=== PATIENT | male | born 1945 | race Caucasian/White ===

== ENCOUNTER 2017-03-16 10:30 | Emergency (ER) | payer OTHER, MEDICARE ==
[2017-03-16] MEDS ORDERED: Ondansetron INJ* 2 MG/ML VIAL IV ONE (10:49)
[2017-03-16] MEDS ORDERED: Morphine INJ* 4 MG/ML 1 ML CARPUJECT IV ONE ×2 (10:49→11:43)
--- NOTE | 2017-03-16 10:57 | ED ---
Abdominal Pain/Male - HPI Summary HPI Summary: Pt here w/ abrupt Lt flank and LLQ pain this morning while going to the bathroom. [place] "funny" this morning when he woke up - was able to urinate and move bowels "a little" but developed burning pain in LLQ during this bathroom visit. Denies nausea, vomiting, diarrhea. He is quite upset about his pain and so details of HPI were limited. is present and reports he has h/o diverticulitis as well as kidney stones - pt is unable to report if this pain feels like either or both. Has not taken HTN meds in past 1 month. Reports he takes 800mg ibuprofen nightly for B/L shoulder pain but stopped taking this past week as it wasn't helping anymore. reports he's complained of intermittent Lt arm pain and finger tingling w/ chest pain on/off over the past few months. Pt reports this is positional and denies nausea, vomiting, jaw pain, diaphoresis, SOB. No h/o [place] or cardiac pathology. - History of Current Complaint Chief Complaint: EDFlankPain Stated Complaint: LEFT FLANK PAIN, Time Seen by Provider: 03/16/17 10:43 Hx Obtained From: Patient, Family/Topographical Drafter - Pain Intensity: 10 - Allergies/Home Medications Allergies/Adverse Reactions: Allergies Allergy/AdvReac Type Severity Reaction Status Date / Time No Known Allergies Allergy Verified 03/16/17 10:51 PMH/Surg Hx/FS Hx/Imm Hx Previously Healthy: Yes Endocrine/Hematology History: Denies: Hx Anticoagulant Therapy, Hx Blood Disorders Cardiovascular History: Reports: Hx Hypertension - has not taken meds in past 1 month - reports intermittent Lt arm, chest edgar Denies: Hx Aneurysm, Hx Coronary Artery Disease, Hx Myocardial Infarction Respiratory History: Denies: Hx Asthma, Hx Chronic Obstructive Pulmonary Disease (COPD) GI History: Reports: Hx Diverticulosis - h/o diverticulitis w/ surgical repair 10 yrs ago, Other GI Disorders - hernia repair -result of divertic surgical repair History: Reports: Hx Kidney Stones Musculoskeletal History: Reports: Hx Arthritis - dx'd by pt - B/L shoulders Denies: Hx Back Problems Infectious Disease History: No Infectious Disease History: Denies: Traveled Outside the [place] in Last 30 Days - Social History Lives: With Family Alcohol Use: Rare Hx Substance Use: No Substance Use Type: Reports: None Hx Tobacco Use: Yes - not currently Smoking Status (MU): Former Smoker Review of Systems Constitutional: Negative Negative: Fever, Chills, Fatigue Eyes: Negative Negative: Photophobia, Blurred Vision, Diplopia, Drainage, Erythema ENT: Negative Cardiovascular: Negative Negative: Palpitations, Chest Pain Respiratory: Negative Negative: Shortness Of Breath, Cough Positive: Abdominal Pain. Negative: Vomiting, Diarrhea, Nausea Positive: see HPI, dysuria, frequency, flank pain - Lt Skin: Negative Neurological: Negative Positive: Anxious All Other Systems Reviewed And Are Negative: Yes Physical Exam Triage Information Reviewed: Yes Vital Signs On Initial Exam: Initial Vitals Temp Pulse Resp BP Pulse Ox 97.9 F 67 20 182/76 100 03/16/17 10:37 03/16/17 10:37 03/16/17 10:37 03/16/17 10:37 03/16/17 10:37 Vital Signs Reviewed: Yes Appearance: Positive: Well-Nourished, Ill-Appearing - generalized pallor, Pain Distress - moderate to severe - writhing in pain - limited response to questions as he's in so much pain - just repeats, "I need something for pain" Skin: Positive: Warm, Skin Color Reflects Adequate Perfusion, Dry Head/Face: Positive: Normal Head/Face Inspection Eyes: Positive: Normal, EOMI, Conjunctiva Clear - anicteric sclera ENT: Positive: Normal ENT inspection, Hearing grossly normal, Pharynx normal - mucosa moist Respiratory/Lung Sounds: Positive: Clear to Auscultation, Breath Sounds Present. Negative: Rales, Rhonchi, Wheezes Cardiovascular: Positive: Normal, RRR, Pulses are Symmetrical in both Upper and Lower Extremities - DP's + 2 equal B/L, S1, S2. Negative: Murmur, Rub, Leg Edema Left, Leg Edema Right, Other - no bruit appreciated Abdomen Description: Positive: No Organomegaly, Soft, CVA Tenderness (L), Guarding - LLQ, Other: - LLQ TTP - pt grabs my hand to pull it away. Negative: CVA Tenderness (R), Distended, Pulsatile Mass Bowel Sounds: Positive: Present Musculoskeletal: Positive: Normal, Strength/ROM Intact - pt has some trouble sitting up in bed but reports it's d/t ab pain, not back pain or weakness Neurological: Positive: Normal, Sensory/Motor Intact, Alert, Oriented to Person Place, Time, CN Intact II-III Psychiatric: Positive: Anxious Diagnostics - Vital Signs Vital Signs Temp Pulse Resp BP Pulse Ox 03/16/17 10:46 67 182/76 100 03/16/17 10:43 67 100 03/16/17 10:37 97.9 F 67 20 182/76 100 - Laboratory Result Diagrams: 03/16/17 10:50 03/16/17 10:50 Lab Statement: Any lab studies that have been ordered have been reviewed, and results considered in the medical decision making process. Re-Evaluation - Re-Evaluation First Eval Change: Improved - pain was 12/04 - now 09/03 - would like more pain med Second Eval Change: Improved - pain improved s/p additional morphine 4mg Abdominal Pain Fem Course/Dx - Course Course Of Treatment: CT report reviewed - B/L nephrolithiasis and Lt sided UVJ stone. Multiple ventral hernias w/o obstruction, one in particular on Lt side. This was also palpated on exam and tender for pt. No rebounding. Spoke w/ Mecenas - explained CT findings and PE findings - okay to d/c and f/u oupt in office as needed for hernia sx. Will have pt f/u w/ urology -strain urine until passes completely. Return to ED for danger s/sx - Diagnoses Provider Diagnoses: Lower urinary tract calculus, Bilateral nephrolithiasis, Ventral hernia without obstruction or gangrene Discharge - Discharge Plan Condition: Stable Disposition: HOME Prescriptions: HYDROcodone/ACETAMIN 5-325 MG* [[place] 5-325 TAB*] 1 tab PO Q6H PRN #20 tab MDD 4 PRN Reason: Pain Ibuprofen TAB* [Motrin TAB* 600 MG] 600 mg PO Q6H PRN #20 tab PRN Reason: Pain Phenazopyridine 200 mg (NF) [Pyridium 200 MG tab *] 200 mg PO TID PRN #6 tab PRN Reason: Pain Tamsulosin CAP* [Flomax CAP*] 0.4 mg PO DAILY #14 cap Patient Education Materials: Kidney Stones (ED), Ureteral Stones (ED), Ventral Hernia (ED) Referrals: Shantanu Gómez MD [Primary Care Provider] - Sandeep Tang MD [Medical Doctor] - Rigo Menard MD [Medical Doctor] - Additional Instructions: You appear to have a kidney stone moving through your ureter on the Left. This is most likely causing your pain today. It is encouraged that you drink plenty of water and strain your urine to monitor for stone's passage. Follow-up with urology as you have other stones in your kidneys as well -they may test the composition of your stone to help you treat/prevent future stones. The medications provided today are to aid in pain reduction and in passage of stone. Once you pass stone, you no longer need to take this medications. Call urologist Saturday to schedule follow-up appointment. If pain is worse or you have inability to urinate, fever, chills, worsening of flank pain, return to ED. You were also found to have multiple ventral hernias. These do not appear to be strangulated or causing you bowel obstruction today however if you develop vomiting, inability to move your bowels or gas despite trying stool softeners, return to ED. Your issue is not acute today and so may be followed outpatient. Call the general surgery office after you have passed your kidney stone(s) to consult.
[2017-03-16 11:00] LABS: ABS Basophils 0.1 10^3/ul (0-0.2); ABS Eosinophils 0.1 10^3/ul (0-0.6); ABS Monocytes 0.7 10^3/ul (0-0.8); ABS Neutrophils 9.6 10^3/ul (1.5-7.7); ABS Nucleated RBC 0 10^3/ul; Eosinophil % 0.7 % (0-6); Hematocrit 42 % (42-52); Hemoglobin 14.1 g/dl (14.0-18.0); Mean Corpuscular HGB Conc 34 g/dl (31-36); Mean Corpuscular Hemoglobin 31 pg (27-31); Mean Corpuscular Volume 90 fL (80-94); Mean Platelet Volume 10 um3 (7.4-10.4); Nucleated Red Blood Cells % 0; Platelet Count 283 10^3/ul (150-450); Red Blood Count 4.62 10^6/ul (4.0-5.4); Red Cell Distribution Width 13 % (10.5-15); White Blood Count 12.4 10^3/ul (3.5-10.8)
[2017-03-16 11:14] LABS: INR 0.88 (0.77-1.02)
[2017-03-16 11:16] LABS: Urine Appearance Clear; Urine Blood 2+ (Negative); Urine Color Yellow; Urine Ketones Negative (Negative); Urine Protein Negative (Negative); Urine Specific Gravity 1.016 (1.010-1.030); Urine Urobilinogen Negative (Negative)
[2017-03-16 11:16] LABS: EGFR Non-African American 74.1 (>60)
--- NOTE | 2017-03-16 12:12 | RAD ---
CLINICAL HISTORY: Left flank pain, left lower quadrant pain, history of colectomy COMPARISON: June 09, 2007 TECHNIQUE: Multiple contiguous axial CT scans were obtained of the abdomen and pelvis, without intravenous contrast enhancement. Coronal and sagittal multiplanar reformations are submitted for review. Oral contrast was not administered. FINDINGS: The study is limited by the lack of intravenous contrast. This limits evaluation of the solid organs and vasculature. LUNG BASES: The lung bases are clear. LIVER: The liver is diffusely low in attenuation compared to the spleen. There are no focal hepatic parenchymal masses. BILE DUCTS: There is no intrahepatic or extrahepatic biliary dilatation. GALLBLADDER: The gallbladder is normal, without pericholecystic inflammatory change. PANCREAS: The pancreas is normal, without mass or ductal dilatation. SPLEEN: Normal in size and appearance. UPPER GI TRACT: Evaluation of the gastrointestinal tract is limited by incomplete gastric distention. There is an approximately 1.3 cm diverticulum of the second stage of the duodenum. SMALL BOWEL AND MESENTERY: The small bowel is normal in contour, course, and caliber. There is no obstruction or dilatation. COLON: The colon is normal in contour, course, caliber. There is no pericolonic inflammatory change. There is a tubular, vermiform, hollow viscus that is blind ending, and originates from the cecum, consistent with a normal appendix. There is no periappendiceal inflammatory change. There is postsurgical change to the colon. ADRENALS: Normal bilaterally. KIDNEYS: There is mild left pelvocaliectasis and hydroureter. There is a 0.2 cm calculus of the left UVJ. Nonobstructing renal calyceal stones bilaterally. BLADDER: As noted above, there is a small calculus of the left UVJ. PELVIC ORGANS: The prostate gland is normal. The seminal vesicles are symmetric. AORTA: There is calcific atherosclerotic disease of the abdominal aorta and its branches, without aneurysmal dilatation IVC: Unremarkable LYMPH NODES: There is no lymphadenopathy by size criteria. ABDOMINAL WALL: There are multiple fat-containing ventral hernias. There is a left lower quadrant ventral hernia containing loops of nondilated small bowel. There is a ventral hernia containing a portion of the transverse colon. BONES AND SOFT TISSUES: Degenerative changes are noted along the spine OTHER: None IMPRESSION: 1. BILATERAL NEPHROLITHIASIS INCLUDING A 0.2 CM LEFT UVJ CALCULUS AND MILD LEFT HYDRONEPHROSIS. 2. FATTY LIVER. 3. ATHEROSCLEROSIS. 4. MULTIPLE VENTRAL HERNIAS, INCLUDING A LEFT LOWER QUADRANT VENTRAL HERNIA CONTAINING LOOPS OF NONDILATED SMALL BOWEL. 5. ATHEROSCLEROSIS.
[2017-03-16] MEDS ORDERED: Ketorolac INJ* 30 MG/ML 1 ML VIAL IV PUSH ONE (14:08)
[2017-03-16] MEDS ORDERED: Tamsulosin CAP* 0.4 MG PO ONE (14:08)
[2017-03-16 14:50] VITALS: BP 151/82
== END 2017-03-16 14:49 | disposition home or self-care (01) ==
LOC: ED 10:30
DX: N13.2 Hydronephrosis with renal and ureteral calculous obstruction (principal); K76.0 Fatty (change of) liver, not elsewhere classified; I70.0 Atherosclerosis of aorta; K43.9 Ventral hernia without obstruction or gangrene; Z87.891 Personal history of nicotine dependence
CPT/HCPCS: 36415; 74176; 80053; 81003; 81015; 82150; 83605; 83690; 83735; 85025; 85610; 85730; 86140; 96374; 96375; 96376; 99283; J1885; J2270; J2405

== ENCOUNTER 2017-08-19 13:53 | Emergency (ER) | payer MEDICARE, OTHER ==
--- NOTE | 2017-08-19 14:45 | RAD ---
INDICATION: Right hand injury COMPARISON: February 08, 2016 TECHNIQUE: AP, lateral, and oblique views were obtained. FINDINGS: There is no acute bony change. There is interphalangeal joint space narrowing. There is advanced osteoarthritis about the base of thumb. There is soft tissue injury about the base of the second digit. There is no foreign body IMPRESSION: OSTEOARTHRITIS. NO FRACTURE OR FOREIGN BODY
[2017-08-19] MEDS ORDERED: Lidocaine 2% PF * 5 ML VIAL INJ ONE (14:55)
[2017-08-19] MEDS ORDERED: Lidocaine 2% EPI 1:200000 MPF*10-20 ML VIAL ONE (14:56)
[2017-08-19] MEDS ORDERED: Tetan/Diph/Pertus SYR(Tdap)* 0.5 ML SYR(BOOSTRIX) use SYR IM ONE ×2 (15:23)
--- NOTE | 2017-08-19 15:31 | ED ---
Laceration/Wound HPI - HPI Summary HPI Summary: Patient is a 72-year-old male presenting to the ED with chief complaint of irregular laceration to the webbing of the third and fourth finger, most prominent over the radial side of the fourth finger measuring approximately 3 cm in length total. 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 Bleeding is controlled on arrival. Denies any numbness or tingling. Denies any limitations with range of motion. - History of Current Complaint Stated Complaint: HAND INJURY Time Seen by Provider: 08/19/17 14:08 Hx Obtained From: Patient Mechanism of Injury: Sharp/Blunt Trauma Onset/Duration: Sudden Onset Aggravating: Movement Alleviating: Compression Timing: Constant Onset Severity: Moderate Current Severity: Moderate Pain Intensity: 10 Pain Scale Used: 0-10 Numeric Associated Signs & Symptoms: Negative Related Hx: Dominant Hand (Right) - Allergy/Home Medications Allergies/Adverse Reactions: Allergies Allergy/AdvReac Type Severity Reaction Status Date / Time No Known Allergies Allergy Verified 08/19/17 13:58 Home Medications: Home Medications Hydrochlorothiazide TAB* [Hydrodiuril TAB*] 25 mg PO DAILY 08/19/17 [History Confirmed 08/19/17] amLODIPine TAB* [Norvasc 5 mg TAB*] 5 mg PO DAILY 08/19/17 [History Confirmed ] PMH/Surg Hx/FS Hx/Imm Hx Previously Healthy: Yes Endocrine/Hematology History: Denies: Hx Anticoagulant Therapy, Hx Blood Disorders Cardiovascular History: Reports: Hx Hypertension - has not taken meds in past 1 month - reports intermittent Lt arm, chest edgar Denies: Hx Aneurysm, Hx Coronary Artery Disease, Hx Myocardial Infarction Respiratory History: Denies: Hx Asthma, Hx Chronic Obstructive Pulmonary Disease (COPD) GI History: Reports: Hx Diverticulosis - h/o diverticulitis w/ surgical repair 10 yrs ago, Other GI Disorders - hernia repair -result of divertic surgical repair History: Reports: Hx Kidney Stones Musculoskeletal History: Reports: Hx Arthritis - dx'd by pt - B/L shoulders Denies: Hx Back Problems - Surgical History Surgery Procedure, Year, and Place: Colon resection - Immunization History Hx Pertussis Vaccination: No Immunizations Up to Date: Unable to Obtain/Confirm Infectious Disease History: No Infectious Disease History: Denies: Traveled Outside the [place] in Last 30 Days - Social History Occupation: Employed Full-time Lives: With Family Alcohol Use: Rare Hx Substance Use: No Substance Use Type: Reports: None Hx Tobacco Use: Yes - not currently Smoking Status (MU): Former Smoker Review of Systems Constitutional: Negative Negative: Fever, Chills, Fatigue, Skin Diaphoresis Negative: Palpitations, Chest Pain Negative: Shortness Of Breath, Cough Genitourinary: Negative Positive: no symptoms reported, see HPI Negative: Arthralgia, Myalgia Neurological: Negative All Other Systems Reviewed And Are Negative: Yes Physical Exam Triage Information Reviewed: Yes Vital Signs On Initial Exam: Initial Vitals Temp Pulse Resp BP Pulse Ox 98 F 111 20 164/100 98 08/19/17 13:55 08/19/17 13:55 08/19/17 13:55 08/19/17 13:55 08/19/17 13:55 Vital Signs Reviewed: Yes Appearance: Positive: Well-Appearing, Well-Nourished Skin: Positive: Warm, Skin Color Reflects Adequate Perfusion, Other - 3cm laceration Head/Face: Positive: Normal Head/Face Inspection Eyes: Positive: EOMI, CHON, Conjunctiva Clear Neck: Positive: Supple, No Lymphadenopathy Respiratory/Lung Sounds: Positive: Clear to Auscultation, Breath Sounds Present Cardiovascular: Positive: RRR, Pulses are Symmetrical in both Upper and Lower Extremities Musculoskeletal: Positive: Normal, Strength/ROM Intact Neurological: Positive: Speech Normal Psychiatric: Positive: Normal, Affect/Mood Appropriate AVPU Assessment: Alert Procedures - Laceration/Wound Repair 1 Location: upper extremity Description: Irregular Anesthesia: 2.0%, L[place], Epi Betadine Prep?: No Laceration/Wound Explored: contaminated Debridement: minimal Suture Type: Prolene Number of Sutures: 9 Layer Closure?: No Sterile Dressing Applied?: No Diagnostics - Vital Signs Vital Signs Temp Pulse Resp BP Pulse Ox 08/19/17 13:55 98 F 111 20 164/100 98 - Laboratory Lab Statement: Any lab studies that have been ordered have been reviewed, and results considered in the medical decision making process. Laceration Repair Course/Dx - Course Course Of Treatment: During course of treatment, the patient is evaluated for laceration to the radial side of the fourth finger into the webbing between the third and fourth fingers. Laceration is proximal moist 3 cm in length, 0.2cm in depth and approximately 0.5 cm in width. Denies any numbness or tingling. Denies any limitations with range of motion. Able to flex and extend all fingers at the DIP, PIP, and MCP joints. Bleeding is controlled on arrival. 3ml lidocaine with epi used as local anesthetic as bleeder was identified. This was well-controlled. 940 sutures placed. Gauze wrapped. Tetanus updated. 7-10 day suture removal. Patient voices no concerns. - Differential Dx Differental Diagnoses: Foreign Body, Tendon Laceration - Clinical Impression Provider Diagnoses: Laceration Discharge - Sign-Out/Discharge Documenting (check all that apply): Discharge/Admit/Transfer - Discharge Plan Condition: Stable Disposition: HOME Patient Education Materials: Care For Your Stitches (ED) Referrals: Shantanu Gómez MD [Primary Care Provider] - Additional Instructions: Stitches removal in 7-10 days Compression dressing as needed if bleeding persists Keep original dressing applied 24 hours If you are in a dirty environment, keeping gauze wrapped and wearing a glove Otherwise, after 24 hours leave open to air Tetnaus is updated - Billing Disposition and Condition Condition: STABLE Disposition: Home
[2017-08-19 15:40] VITALS: BP 158/93
== END 2017-08-19 15:40 | disposition home or self-care (01) ==
LOC: ED 13:53
DX: S61.218A Laceration without foreign body of other finger without damage to nail, initial encounter (principal); X58.XXXA Exposure to other specified factors, initial encounter; Y92.9 Unspecified place or not applicable; Z23 Encounter for immunization
CPT/HCPCS: 12032; 90471; 90715; 99282